=== PATIENT | male | born 2000 | race Two or more races ===

== ENCOUNTER 2023-04-02 16:13 | Emergency (ER) | payer BC, OTHER ==
[~2023-04-02] VITALS: Ht 175.3 cm; Wt 79.1 kg
[2023-04-02] MEDS ORDERED: HYDROmorphone HCL 2 MG/ML VL/or syr IM STA (17:03)
[2023-04-02] MEDS ORDERED: ONDANSETRON ODT 4 MG TAB PO ONE (19:00)
[2023-04-02] MEDS ORDERED: KETAMINE 50mg/ML 10ml Vial (500mg/10ml) IV ONE (20:30)
[2023-04-02] MEDS ORDERED: KETOROLAC TROMETH 30 MG/ML 1ML VIAL IV ONE (20:30)
[2023-04-02] MEDS ORDERED: HYDROmorphone HCL 2 MG/ML VL/or syr IV ONE (22:15)
[2023-04-03] MEDS ORDERED: PROPOFOL 10 MG/ML 20 ML IV ONE
[2023-04-03] MEDS ORDERED: HYDROmorphone HCL 2 MG/ML VL/or syr IV ONE
[2023-04-03] MEDS ORDERED: ZOFR4T PO (01:43)
[2023-04-03] MEDS ORDERED: PERCOT PO (01:43)
[2023-04-03 02:05] VITALS: BP 151/86
== END 2023-04-03 02:09 | disposition home or self-care (01) ==
LOC: ER 16:13
DX: S52.591A Other fractures of lower end of right radius, initial encounter for closed fracture (principal); Z98.890 Other specified postprocedural states; W18.39XA Other fall on same level, initial encounter; Y93.89 Activity, other specified; Y92.89 Other specified places as the place of occurrence of the external cause; Y99.8 Other external cause status
CPT/HCPCS: 25605; 73100; 73110; 96372; 96374; 96375; 99285; J1170; J1885; J2704; Q0162; 96365